=== PATIENT | female | born 1980 | race Caucasian/White ===

== ENCOUNTER 2018-12-27 07:07 | Inpatient (IN) | payer OTHER ==
[~2018-12-27 07:07] MED LIST: cefOXitin 2 GM Vial ONE
[2018-12-27] MEDS ORDERED: fentaNYL 250 MCG/5 ML SDV ONE ×2 (07:12→09:11)
[2018-12-27] MEDS ORDERED: Succinylcholine 200 MG/10 ML MDV ONE (07:13)
[2018-12-27] MEDS ORDERED: Lactated Ringers 1,000 ML ONE (07:13)
[2018-12-27] MEDS ORDERED: Rocuronium 50 MG/5 ML Vial ONE (07:13)
[2018-12-27] MEDS ORDERED: Neostigmine Methylsulfate 1 MG/ML 5 ML Syringe ONE (07:13)
[2018-12-27] MEDS ORDERED: Dexamethasone 4 MG/ML SDV ONE (07:13)
[2018-12-27] MEDS ORDERED: Ondansetron 4 MG/2 ML SDV ONE (07:13)
[2018-12-27] MEDS ORDERED: Propofol 200 MG/20 ML SDV ONE (07:13)
[2018-12-27] MEDS ORDERED: Glycopyrrolate 0.2 MG/ML 5 ML MDV ONE (07:13)
[2018-12-27] MEDS ORDERED: cefOXitin 2 GM in Sodium Chloride 0.9% 50 ML IV ONE (07:30)
[2018-12-27] MEDS ORDERED: Acetaminophen 500 MG Tab PO ONE (07:30)
[2018-12-27] MEDS ORDERED: Dextrose 5%-Lactated Ringers 1,000 ML IV SCH (07:30)
[2018-12-27] MEDS ORDERED: Scopolamine 1.5 MG Transdermal Patch TOP ONE (07:30)
[2018-12-27] MEDS ORDERED: Gabapentin 300 MG Cap PO ONE (07:30)
[2018-12-27] MEDS ORDERED: Celecoxib 200 MG Cap PO ONE (07:30)
[2018-12-27] MEDS ORDERED: Ketamine 50 MG in Sodium Chloride 0.9% 49.5 ML IV SCH (08:45)
[2018-12-27] MEDS ORDERED: Lidocaine 2% 100 MG/5 ML Syringe IVPUSH SCH (08:45)
[2018-12-27] MEDS ORDERED: Ketamine 500 MG/5 ML MDV IV SCH (08:45)
[2018-12-27] MEDS ORDERED: Labetalol 20 MG/4 ML Syringe ONE (09:46)
[2018-12-27] MEDS: Lidocaine 0.4%/D5W 2 GM/500 ML BAG IV SCH (11:25)
[2018-12-27] MEDS ORDERED: diphenhydrAMINE 50 MG/ML SDV IVPUSH PRN (11:36)
[2018-12-27] MEDS ORDERED: Ondansetron 4 MG/2 ML SDV IVPUSH PRN (11:36)
[2018-12-27] MEDS ORDERED: Metoclopramide 10 MG/2 ML SDV IVPUSH PRN (11:36)
[2018-12-27] MEDS ORDERED: hydrOXYzine HCl 100 MG/2 ML SDV IM PRN (11:36)
[2018-12-27] MEDS ORDERED: HYDROmorphone 0.5 MG/0.5 ML Syringe IVPUSH PRN (11:36)
[2018-12-27] MEDS ORDERED: HYDROmorphone 1 MG/ML Syringe IV PRN (11:36)
[2018-12-27] MEDS ORDERED: Labetalol 20 MG/4 ML Syringe IVPUSH PRN (11:36)
[2018-12-27] MEDS: cefOXitin 2 GM in Sodium Chloride 0.9% 50 ML IV SCH ×2 (14:18→19:28)
[2018-12-27] MEDS: Acetaminophen 325 MG Tab PO SCH ×2 (14:18→19:27)
[2018-12-27] MEDS: Gabapentin 250 MG/5 ML Solution ML 470 ML Bottle PO SCH ×2 (14:18→21:03)
[2018-12-27] MEDS: Heparin Sodium 5,000 Units/ML Vial SUBCUT SCH (15:54)
[2018-12-27] MEDS ORDERED: Pantoprazole 40 MG Vial IVPUSH SCH (16:00)
[2018-12-27] MEDS ORDERED: MVI, Adult with Vitamin K 10 ML, Thiamine 200 MG, Chromium/Copper/Mang/Selen/Zn 1 ML in... IV SCH ×4 (16:00)
[2018-12-27] MEDS: Dextrose 5%-Lactated Ringers 1,000 ML IV SCH (22:07)
[2018-12-28] MEDS: cefOXitin 2 GM in Sodium Chloride 0.9% 50 ML IV SCH ×2 (01:10→08:02)
[2018-12-28] MEDS: Acetaminophen 325 MG Tab PO SCH ×4 (01:10→20:07)
[2018-12-28] MEDS ORDERED: Iopamidol 612 MG/ML 50 ML SDV PO STA (02:45)
[2018-12-28] MEDS: Heparin Sodium 5,000 Units/ML Vial SUBCUT SCH ×2 (03:27→15:51)
--- NOTE | 2018-12-28 04:00 | CRLCR ---
Indication: Status post Teo-en-Y, evaluate for leakage Technique: Ultrasound abdomen modified upper GI Comparison: None Findings: Contrast is noted to transit across the gastric pouch into the jejunum. No definitive evidence for leakage. Impression: No definitive evidence for oral contrast leakage. Dictated by Darrell Dover MD @ 12/28/2018 3:58:02 AM Dictated by: Darrell Dover MD @ 12/28/2018 03:58:05 (Electronically Signed)
[2018-12-28] MEDS: Dextrose 5%-Lactated Ringers 1,000 ML IV SCH (04:08)
[2018-12-28] MEDS ORDERED: Ondansetron 4 MG Tab.DIS PO PRN (07:51)
[2018-12-28] MEDS ORDERED: Dextrose 5%-Lactated Ringers 1,000 ML IV SCH (08:00)
[2018-12-28] MEDS: Gabapentin 250 MG/5 ML Solution ML 470 ML Bottle PO SCH ×3 (08:03→20:09)
[2018-12-28] MEDS: Celecoxib 200 MG Cap PO SCH (08:03)
[2018-12-28] MEDS: FLUoxetine 20 MG Cap PO SCH (08:03)
[2018-12-28] MEDS: SCOPOLAMINE PATCH CHECK TOP SCH (10:36)
[2018-12-28] MEDS: Lidocaine 0.4%/D5W 2 GM/500 ML BAG IV SCH (10:36)
[2018-12-28] MEDS ORDERED: Sodium Chloride 0.9% 10 ML Syringe IV PRN (16:22)
[2018-12-28] MEDS ORDERED: Pantoprazole 40 MG Delayed-Release Granules 1 Packet PO SCH (16:30)
[2018-12-29] MEDS: Acetaminophen 325 MG Tab PO SCH ×2 (03:04→08:25)
[2018-12-29] MEDS: Heparin Sodium 5,000 Units/ML Vial SUBCUT SCH (03:06)
[2018-12-29] MEDS ORDERED: Magnesium Hydroxide 400 MG/5 ML Susp 30 ML Cup PO PRN (07:46)
[2018-12-29] MEDS: Celecoxib 200 MG Cap PO SCH (08:25)
[2018-12-29] MEDS ORDERED: Cyanocobalamin (Vitamin B12) 1,000 MCG/ML SDV IM ONE (09:00)
[2018-12-29] MEDS: Gabapentin 250 MG/5 ML Solution ML 470 ML Bottle PO SCH (09:15)
[2018-12-29] MEDS: FLUoxetine 20 MG Cap PO SCH (09:15)
[2018-12-29] MEDS: SCOPOLAMINE PATCH CHECK TOP SCH (09:16)
--- NOTE | 2018-12-31 08:09 | DISCH ---
FINAL DIAGNOSES: 1. Morbid obesity. 2. Marked hepatomegaly. 3. Paraesophageal diaphragmatic hernia. 4. Mediastinal lipoma. 5. Portion of stomach found to be ischemic, status post pouch formation. 6. History of depression, in remission. OPERATIVE PROCEDURES: Done on 12/27/2018, diagnostic laparoscopy with: 1. Laparoscopic Teo-en-Y gastric bypass with long-limb gastroenterostomy. 2. El-Cut needle liver biopsy. 3. Repair of paraesophageal diaphragmatic hernia. 4. Excision of mediastinal lipoma. 5. Partial gastrectomy. HOSPITAL COURSE: This is a 38-year-old presenting with longstanding morbid obesity and increasingly significant comorbidities. After preoperative evaluation and discussion, she wished to proceed with a gastric bypass procedure. This was done on the date of admission with the above additional procedures being done concurrently. Postoperatively, she has had no significant problems. She did not need any narcotics postoperatively and will be discharged home on Celebrex and Tylenol, otherwise continuing her Prozac at the usual dose. She will be instructed to stay on a step-2 diet until the first appointment, which will be with Zo Christiansen at [facility] in [place], on 01/08/2019, at 10:30 a.m.
--- NOTE | 2018-12-31 09:18 | OR ---
DATE OF PROCEDURE: 12/27/2018 SURGEON: Krunal Reese MD PREOPERATIVE DIAGNOSIS: Morbid obesity. POSTOPERATIVE DIAGNOSES: 1. Morbid obesity. 2. Marked hepatomegaly. 3. Paraesophageal diaphragmatic hernia. 4. Mediastinal lipoma. 5. Portion of the stomach ischemic, status post pouch formation. OPERATIVE PROCEDURES: Diagnostic laparoscopy with: 1. Laparoscopic Teo-en-Y gastric bypass with long-limb gastroenterostomy (20901). 2. El-Cut needle liver biopsy (26144). 3. Repair of a paraesophageal diaphragmatic hernia (82090). 4. Excision of a mediastinal lipoma (76836). 5. Partial gastrectomy (13072). ANESTHESIA: General. GROCERY SPECIALIST: Zo Christiansen PA-C INDICATION FOR PROCEDURE: This is a 38-year-old with longstanding morbid obesity and increasingly significant comorbidities. After preoperative evaluation and discussion, she wished to proceed with a gastric bypass procedure. Potential risks, including bleeding, infection, leaks from various GI tract closures, and problems with bowel obstruction over time, as well as the possibility of cardiopulmonary, septic, or hemorrhagic complications leading to , were all discussed, and the patient wishes to proceed. DETAILS OF PROCEDURE: The patient was taken to the operating room, and after general endotracheal anesthesia was induced, she was placed in a lithotomy position and the abdomen prepped and draped. At 15 cm inferior and 5 cm left of the xiphoid process, a transverse incision was made and the peritoneal cavity entered under direct vision with an Optiview trocar and inflated to 15 mmHg pressure with CO2. Laparoscope was then reinserted. No underlying trocar insertion site injuries were seen. Following this, 5 additional trocars were placed across the upper mid abdomen. Bilateral transversus abdominis plane blocks were placed and the upper abdomen initially examined. The patient was noted to have marked hepatomegaly with the liver volume being 2 to 3 times normal and the liver grossly fatty infiltrated. El-Cut needle biopsies were obtained from the left lobe of the liver. Minimal bleeding from the biopsy sites was controlled with electrocautery. The omentum was then divided in the midline up to the level of the transverse colon. This allowed identification of the small bowel at the ligament of Treitz. The small bowel was then traced out 200 cm distal to that point, where it was divided with a GILBERT stapler. The small bowel was then traced out an additional 200 cm, where a [id number] enteroenterostomy was accomplished with an internal firing of an Endo-GILBERT 60 mm stapler. The common opening was then closed transversely with the same stapler, the angles anastomosed, and the mesenteric defect reinforced with some 0 Ethibond suture, along with fibrin sealant. The Teo limb was then from the mesentery for a few centimeters, which allowed an antecolic positioning of the Teo limb up to the level of gastroesophageal junction without tension. The liver was then retracted anteriorly. The patient was noted to have a significant paraesophageal diaphragmatic hernia with prolapse of the gastric fundus and perigastric fat and a little bit of omentum in a plane anterior to the course of the esophagus. This was reduced and the peritoneum overlying the hernia incised and reflected downward. During the course of the dissection, a mediastinal lipoma was encountered, which was excised and sent for separate pathologic review. The diaphragmatic hernia was then closed with some 0 Ethibond sutures reinforced with PTFE pledgets anteriorly. The gastrointestinal balloon catheter was then inflated with 15 mL and pulled up snuggly against the EG junction. The gastric wall over the apex of the balloon was then marked with electrocautery and the balloon catheter deflated and pulled up into the esophagus. The lesser omental tissue adjacent to the gastric cardia was then incised, allowing dissection behind the stomach at that level. Pouch formation was initiated with a transverse firing of the GILBERT stapler at the level of the cauterized marsha in the gastric cardia. Pouch was then completed with additional firings of the GILBERT stapler up to and through the angle of His. Upon completion of the pouch, both staple lines were noted to be intact. The distal-most aspect of the pouch at this point appeared to be somewhat ischemic; therefore, a portion of this was excised and sent as a separate specimen. This, in fact, led to a probably more adequately sized pouch in terms of the initial pouch being somewhat longer than would be optimum. The remaining staple line and edges of the pouch at this point appeared to be very satisfactory. The anvil of a 25 mm EEA stapler was attached to Alger sump-type tube. The latter was brought down through the mouth and taken out through a small opening in the gastric pouch, allowing the anvil likewise to be placed into the gastric pouch. The divided end of the Teo limb was then opened and the main body of the EEA stapler passed several centimeters into the lumen of the small bowel, brought up the anvil, and united with it, thus creating the gastrojejunostomy. Upon removal of the stapler, double donuts of mucosa were noted within it. The small bowel was closed off with a vascular staple line. The gastrojejunostomy was reinforced with 3-0 Vicryl seromuscular stitch, along with fibrin sealant. A leak test was accomplished with injection of 120 mL of air in the gastric pouch while submerged within a cefoxitin-containing saline solution. No leaks were identified. A single Vignesh-Alvarez drain was taken out through the left lateral trocar site and positioned in the area of the gastrojejunostomy and from there up into the splenic fossa. The trocars were removed and the peritoneal cavity deflated. The incisions were closed with some 4-0 Vicryl skin stitch, which was also used to affix the drain, and a dressing applied. The patient was taken to the recovery room in satisfactory condition. Physician pet care assistant, Zo Christiansen, played an essential role in assisting in this case, helping to position the patient and retract structures as needed, as well as suturing and cutting sutures when indicated. Her presence improved patient safety and decreased the operative time. Krunal Reese MD /[id number]
== END 2018-12-29 09:40 | disposition home or self-care (01) | DRG 621 ==
LOC: JP.SDS 07:07 → JP.SDSSCHI 07:07 → JP.MS 10:20 → EDSTATUS 10:30
PROVIDERS: ADMIT Surgery; ATTEND Surgery
PROC: 0D164ZA Bypass Stomach to Jejunum, Percutaneous Endoscopic Approach (ICD-10-PCS; principal; 2018-12-27)
PROC: 0BQT4ZZ Repair Diaphragm, Percutaneous Endoscopic Approach (ICD-10-PCS; 2018-12-27)
PROC: 0FB24ZX Excision of Left Lobe Liver, Percutaneous Endoscopic Approach, Diagnostic (ICD-10-PCS; 2018-12-27)
PROC: 0WBC4ZZ Excision of Mediastinum, Percutaneous Endoscopic Approach (ICD-10-PCS; 2018-12-27)
PROC: 0DB64ZZ Excision of Stomach, Percutaneous Endoscopic Approach (ICD-10-PCS; 2018-12-27)
DX: E66.01 Morbid (severe) obesity due to excess calories (principal); R16.0 Hepatomegaly, not elsewhere classified; K44.9 Diaphragmatic hernia without obstruction or gangrene; Z68.42 Body mass index [BMI] 45.0-49.9, adult; F32.9 Major depressive disorder, single episode, unspecified
CPT/HCPCS: 36415; 74240; 80048; 81025; 82962; 83735; 84100; 85027; 86850; 86900; 86901; A9270-GY; C9113; J0171; J0330; J0694; J1100; J1644; J2001; J2405; J2704; J2710; J2795; J3010; J3411; J3420; J3490; J7042; J7050; J7120; Q9967